=== PATIENT | male | born 1980 | race Caucasian/White ===

== ENCOUNTER 2017-02-24 22:45 | Emergency (ER) | payer MEDICAID ==
[~2017-02-24] VITALS: Ht 170.2 cm; Wt 91.0 kg
[~2017-02-24 22:45] MED LIST: IBUP-725 PO
[2017-02-24 22:49] VITALS: Ht 170.2 cm; Wt 91.0 kg
[2017-02-25] MEDS ORDERED: DIPHTH/TET/ACEL PERTUSS (ADULT) 0.5 ML VIAL IM* ONE
[2017-02-25] MEDS ORDERED: HYDROCODONE/APAP (5/325) TAB PO ONE
[2017-02-25] MEDS ORDERED: LIDOCAINE 2% (MDV) 20 ML INJ INJ ONE (00:30)
--- NOTE | 2017-02-25 01:20 | RADRPT ---
PROCEDURE: X-ray right leg CLINICAL INDICATION: Laceration to the anterior mid right leg. Reference marker is directed towards region of laceration in the anterior mid left leg soft tissues TECHNIQUE: 4 views of the right leg. COMPARISON: None. FINDINGS: No evident retained radiopaque foreign material in region of laceration. No acute fracture or dislo cation. Soft tissues unremarkable. IMPRESSION: No evident retained radiopaque foreign material in the soft tissues of the right leg. RPTAT: [facility] Physician Ankush Date Time Electronically viewed and signed by Physician Ankush on 02/25/2017 01:20 RS/
[2017-02-25] MEDS ORDERED: IBUP-1542 PO (01:24)
[2017-02-25] MEDS ORDERED: CEPH-443 PO (01:26)
--- NOTE | 2017-02-25 02:01 | ERD ---
ER Documentation Chief Complaint Date/Time DATE: 02/25/17 TIME: 01:58 Chief Complaint right leg laceration HPI 36-year-old male patient with no significant past medical history presents the ED complaining of a laceration on the right leg. States that he was fixing the bathroom and putting it frame on top and the hammer accidentally fell onto the toilet and landed on his right calf area. Reports that he sustained a laceration. States that he is not up-to-date with tetanus vaccine. Denies any fever, chills, loss of sensation, loss of range of motion, weakness, numbness or tingling. ROS All systems reviewed and are negative except as per history of present illness. Medications Home Meds Active Scripts Cephalexin* (Keflex*) 500 Mg Capsule, 500 MG PO QID for 7 Days, CAP Prov:NASEEM BUTT PA-C 02/25/17 Ibuprofen* (Motrin*) 600 Mg Tab, 600 MG PO Q6, #30 TAB Prov:NASEEM BUTT PA-C 02/25/17 Reported Medications Ibuprofen (Motrin) 400 Mg Tablet, 400 MG PO PRN 05/19/11 Allergies Allergies: Coded Allergies: No Known Allergy (Unverified , 02/26/17) PMhx/Soc History of Surgery: Yes (APPENDECTOMY) Anesthesia Reaction: No Hx Neurological Disorder: No Hx Respiratory Disorders: No Hx Cardiac Disorders: No Hx Psychiatric Problems: No Hx Miscellaneous Medical Probl: Yes (RIGHT LOWER LEG SWELLING) Hx Alcohol Use: No Hx Substance Use: No Hx Tobacco Use: No Smoking Status: Never smoker Physical Exam Vitals Vital Signs Date Time Temp Pulse Resp B/P Pulse Ox O2 Delivery O2 Flow Rate FiO2 02/24/17 22:49 97.8 72 20 144/80 98 Physical Exam Const: Ndh-ozu-rkwdgewma, well-nourished. In no acute distress. Head: Atraumatic, normocephalic Eyes: Normal Conjunctiva without injection ENT: Normal external ear, nose and mouth. Neck: Full range of motion. No meningismus. Resp: Clear to auscultation bilaterally. No wheezing, rhonchi, rales, or crackles. No accessory muscle use. No retractions. Cardio: Regular rate and rhythm, no murmurs Skin: No petechiae or rashes Back: No midline tenderness. No CVA tenderness. Ext: No cyanosis, or edema. Cap refill less than 2 seconds. Distal pulses intact bilaterally. 7 cm Y shaped laceration noted on the right lateral calf region with no surrounding erythema, edema, deformities. Neur: Awake and alert. Normal gait and coordination. Muscle strength 5/5. Sensation intact bilaterally. Psych: Normal Mood and Affect Results 24 hrs Current Medications Medications (Trade) Dose Ordered Sig/[place] Route PRN Reason Start Time Stop Time Status Last Admin Dose Admin Diphtheria/ Tetanus/Acell Pertussis (Adacel) 0.5 ml ONCE ONCE IM* 02/25/17 00:00 02/25/17 00:06 DC 02/25/17 00:25 Acetaminophen/ Hydrocodone Bitart (Gurnee (5/325)) 1 tab ONCE ONCE PO 02/25/17 00:00 02/25/17 00:06 DC 02/25/17 00:25 Lidocaine (Xylocaine 2% (Mdv) 20 ml) 20 ml ONCE ONCE INJ 02/25/17 00:30 02/25/17 00:31 DC Procedures/MDM This is a 36-year-old male patient with no significant past medical history presents to the ED complaining about lower right leg laceration. Patient is afebrile nontoxic appearing. Patient has normal vital signs. Tdap vaccination was updated here in the ED. A right tib-fib x-ray was ordered to further evaluate patient. PROCEDURE: X-ray right leg CLINICAL INDICATION: Laceration to the anterior mid right leg. Reference marker is directed towards region of laceration in the anterior mid left leg soft tissues TECHNIQUE: 4 views of the right leg. COMPARISON: None. FINDINGS: No evident retained radiopaque foreign material in region of laceration. No acute fracture or dislocation. Soft tissues unremarkable. IMPRESSION: No evident retained radiopaque foreign material in the soft tissues of the right leg. Patient gave consent to perform laceration repair. Laceration Repair by me: Anesthesia: 9 cc 1% lidocaine locally Location: [Right lateral calf] Tendon/Joint/Nerves: No injury Foreign body: None detected after copious irrigation and exploration Technique: 11 3-0 Ethilon Simple Interrupted Sutures Complexity: No subcutaneous sutures/mucosal repair/ edge excision Post Closure Length: [7] cm Patient's bleeding was easily controlled in the department and there is no indication of anemia. Patient is neurovascularly intact. No evidence of compartment syndrome, neurologic injury, vascular injury, open joint, tendon laceration, or foreign body. Patient is appropriate for outpatient follow up. Patient was given crutches. Patient is neurovascularly intact. Patient's extremity symptoms have stabilized while they have been evaluated in the department and are appropriate for outpatient follow up. No evidence of fractures, dislocations, compartment syndrome, neurologic injury, vascular injury, open joint, open fracture, tendon laceration, septic arthritis, osteomyelitis, DVT, foreign body, or other emergent conditions. 48 hour wound check. Scar minimization instructions given. Instructed patient to return for suture removal in 7-10 days. Discharge medications: Keflex, Ibuprofen Follow up with primary care physician in 1-2 days. Instructed patient to return to the ED sooner for any worsening symptoms. Patient's questions were answered. Patient understood and agreed with discharge plan. Patient discharged stable. Departure Diagnosis: Primary Impression: Laceration of calf Encounter type: initial encounter Laterality: right Qualified Code: S81.811A - Laceration of calf, right, initial encounter Condition: Stable Patient Instructions: Laceration, Extrem (Suture, Staple, Or Tape) Referrals: [facility] YOU HAVE RECEIVED A MEDICAL SCREENING EXAM AND THE RESULTS INDICATE THAT YOU DO NOT HAVE A CONDITION THAT REQUIRES URGENT TREATMENT IN THE EMERGENCY DEPARTMENT. FURTHER EVALUATION AND TREATMENT OF YOUR CONDITION CAN WAIT UNTIL YOU ARE SEEN IN YOUR DOCTORS OFFICE WITHIN THE NEXT 1-2 DAYS. IT IS YOUR RESPONSIBILITY TO MAKE AN APPOINTMENT FOR FOLOW-UP CARE. IF YOU HAVE A PRIMARY DOCTOR --you should call your primary doctor and schedule an appointment IF YOU DO NOT HAVE A PRIMARY DOCTOR YOU CAN CALL OUR PHYSICIAN REFERRAL HOTLINE AT IF YOU CAN NOT AFFORD TO SEE A PHYSICIAN YOU CAN CHOSE FROM THE FOLLOWING [facility] CL[facility]ICS [facility] [address] [facility]. [facility] [address] [facility]. [facility] [address] [facility]. [facility] [address] [facility]. [facility] [address] [facility]. [facility]. [address] [facility]. [facility] YOU HAVE RECEIVED A MEDICAL SCREENING EXAM AND THE RESULTS INDICATE THAT YOU DO NOT HAVE A CONDITION THAT REQUIRES URGENT TREATMENT IN THE EMERGENCY DEPARTMENT. FURTHER EVALUATION AND TREATMENT OF YOUR CONDITION CAN WAIT UNTIL YOU ARE SEEN IN YOUR DOCTORS OFFICE WITHIN THE NEXT 1-2 DAYS. IT IS YOUR RESPONSIBILITY TO MAKE AN APPOINTMENT FOR FOLOW-UP CARE. IF YOU HAVE A PRIMARY DOCTOR --you should call your primary doctor and schedule and appointment IF YOU DO NOT HAVE A PRIMARY DOCTOR YOU CAN CALL OUR PHYSICIAN REFERRAL HOTLINE AT . IF YOU CAN NOT AFFORD TO SEE A PHYSICIAN YOU CAN CHOSE FROM THE FOLLOWING [facility] INSTITUTIONS: [facility] [address] [place] [address] [facility] [address] [place] [address] [facility] [address] [place] [address] [facility] URGENT CARE/SPECIALTIES Additional Instructions: WOUND CHECK:CONSULTE A ASH MDICO EN 2 wilson para nabil ASH HERIDA. SUTURE REMOVAL:CONSULTE A ASH MDICO PARA SACAR ASH PUNTOS.PARA LA REANNA 5-6 d as.EN OTRO LUGAR 7-10 wilson. Llame al doctor STONE y valentina sarah GALINDO PARA DENTRO DE 2-3 MORSE.Dgale a la secretaria que nosotros le instruimos hacer esta galindo.Avise o llame si ash condicin se empeora antes de la galindo. Regresa aqui si peor o no mejor. NASEEM BUTT PA-C Feb 25, 2017 02:01 Llame al doctor STONE y valentina sarah GALINDO PARA DENTRO DE 2-3 MORSE.Dgale a la secretaria que nosotros le instruimos hacer esta galindo.Avise o llame si sah condicin se empeora antes de la galindo. Regresa aqui si peor o no mejor. NASEEM BUTT PA-C Feb 25, 2017 02:01
== END 2017-02-25 01:35 | disposition home or self-care (01) ==
LOC: FTE 22:45
DX: S81.811A Laceration without foreign body, right lower leg, initial encounter (principal); W20.8XXA Other cause of strike by thrown, projected or falling object, initial encounter; Y92.9 Unspecified place or not applicable; Z23 Encounter for immunization
CPT/HCPCS: 12002; 73590; 90471; 90715; Z7502; Z7610

== ENCOUNTER 2017-02-26 17:06 | Emergency (ER) | END 2017-02-26 18:07 | disposition home or self-care (01) | DX: Z48.01 Encounter for change or removal of surgical wound dressing (principal) ==

== ENCOUNTER 2017-03-06 17:48 | Emergency (ER) | payer MEDICAID ==
[~2017-03-06] VITALS: Ht 175.3 cm; Wt 92.0 kg
[~2017-03-06 17:48] MED LIST changes: +CEPH-443 PO; +IBUP-1542 PO
[2017-03-06 17:52] VITALS: Ht 175.3 cm; Wt 92.0 kg
--- NOTE | 2017-03-06 23:20 | ERD ---
ER Documentation Chief Complaint Date/Time DATE: 03/06/17 TIME: 23:19 Chief Complaint SUTURE REMOVAL ON RT LEG HPI This patient is a 36-year-old male presenting to the emergency department for suture removal of his right lower lateral leg. Sutures have been in place for 8 days. The patient had 11 sutures placed. He denies redness, discharge, fevers, or other symptoms. ROS All systems reviewed and are negative except as per history of present illness. Medications Home Meds Active Scripts Cephalexin* (Keflex*) 500 Mg Capsule, 500 MG PO QID for 7 Days, CAP Prov:NASEEM BUTT PA-C 02/25/17 Ibuprofen* (Motrin*) 600 Mg Tab, 600 MG PO Q6, #30 TAB Prov:NASEEM BUTT PA-C 02/25/17 Reported Medications Ibuprofen (Motrin) 400 Mg Tablet, 400 MG PO PRN 05/19/11 Allergies Allergies: Coded Allergies: No Known Allergy (Unverified , 02/26/17) PMhx/Soc History of Surgery: Yes (APPENDECTOMY) Anesthesia Reaction: No Hx Neurological Disorder: No Hx Respiratory Disorders: No Hx Cardiac Disorders: No Hx Psychiatric Problems: No Hx Miscellaneous Medical Probl: Yes (RIGHT LOWER LEG SWELLING) Hx Alcohol Use: No Hx Substance Use: No Hx Tobacco Use: No Smoking Status: Never smoker Physical Exam Vitals Vital Signs Date Time Temp Pulse Resp B/P Pulse Ox O2 Delivery O2 Flow Rate FiO2 03/06/17 17:52 97.9 70 18 130/81 98 Physical Exam Const: Nontoxic, well-appearing male in no acute distress. Head: Atraumatic Eyes: Normal Conjunctiva ENT: Normal External Ears, Nose and Mouth. Skin: The patient has [address] over well-healing laceration over the left lateral lower leg. Back: No midline or flank tenderness Ext: No cyanosis, or edema Neur: Awake and alert Psych: Normal Mood and Affect Procedures/MDM 36-year-old male presents for suture removal of left lower leg. Suture Removal by me: 11 sutures removed with tweezers and scissors without incident. Wound shows no evidence of infection, foreign body, neurologic injury, vascular injury, open joint or tendon laceration. Patient to follow up PRN. Departure Diagnosis: Primary Impression: Encounter for removal of sutures Condition: Fair Patient Instructions: Suture Removal, No Complication Referrals: [facility] Usted se kelley hecho un examen mdico de control que le indica que no est en sarah condicin que requiera tratamiento urgente en el Departamento de Emergencia. Un estudio ms profundo y el tratamiento de broussard condicin pueden esperar sin ningn riesgo hasta que usted sea atendida/o en el consultorio de broussard mdico o sarah cl lucy. Es responsabilidad suya arreglar sarah alessia para el seguimiento del bessy. MANEJO DE CONDICIONES NO URGENTES EN EL FUTURO 1) Si usted tiene un mdico de atencin primaria: Usted debera llamar a broussard mdico de atencin primaria antes de venir al departamento de emergencia. Despus de las horas de consultorio, broussard doctor o broussard asociado/a est disponible por telfono. El mdico o enfermero de diana en el servicio telefnico puede asesorarle por adama medio para atender el problema, o bessy contrario se puede programar sarah alessia. 2) Si usted no tiene un mdico de atencin primaria: Llame al mdico o clnica de referencia que aparece abajo pippa las horas de consultorio para hacer sarah alessia para que le vean. CLINICAS: [facility] [phone] [address] [facility] [phone] [address] [facility] [phone] [facility] [phone] [address] [place] [phone] [facility]. [phone] [address] Additional Instructions: No mas mejor en 2-3 spence, regresar. Mas peor en 24 horas, regresear rapidamente. Ir a doctor primario in 5-7 spence. Usar instrucciones cuando kianna medicamento. KAYLEE STAPLES PA-C Mar 06, 2017 23:15
== END 2017-03-06 19:51 | disposition home or self-care (01) ==
LOC: FTE 17:48
DX: Z48.02 Encounter for removal of sutures (principal)
CPT/HCPCS: 99281